=== PATIENT | female | born 1965 | race Caucasian/White ===

== ENCOUNTER → 2019-02-15 | Outpatient (CLI) | payer OTHER ==
--- NOTE | 2019-02-15 11:12 | US ---
EXAMINATION TYPE: US abdomen complete DATE OF EXAM: 02/15/2019 COMPARISON: NONE CLINICAL HISTORY: K83.1 Cholestasis. EXAM MEASUREMENTS: Liver Length: 9.3 cm Gallbladder Wall: 0.2 cm CBD: 0.3 cm Spleen: 6.9 cm Right Kidney: 9.9 x 3.5 x 4.8 cm Left Kidney: 9.1 x 4.3 x 4.5 cm Pancreas: partially obscured by bowel gas, appears wnl Liver: heterogeneous, possible focal fatty sparing adjacent to gallbladder Gallbladder: wnl Evidence for sonographic Flores's sign: no CBD: wnl Spleen: no well visualized Right Kidney: wnl Left Kidney: oval shaped cyst measuring 1.4 x 2.3 x 1.6cm Upper IVC: wnl Abd Aorta: wnl The liver is heterogenous. The intrahepatic portion of the IVC and proximal abdominal aorta are withi n normal limits. There is no evidence of cholelithiasis. Common bile duct is unremarkable. The vis ualized portions of the pancreas are homogenous. The spleen is unremarkable. Kidneys are symmetric and free of hydronephrosis. No renal lesions are seen. IMPRESSION: Hepatic steatosis with areas of focal fatty sparing.
== END | disposition home or self-care (01) ==
LOC: RADUSWWP 09:05
PROVIDERS: ATTEND Family Medicine
DX: K76.0 Fatty (change of) liver, not elsewhere classified (principal)
CPT/HCPCS: 76700